=== PATIENT | female | born 1995 | race Caucasian/White ===

== ENCOUNTER 2022-07-20 09:41 | Emergency (ER) | payer MEDICAID ==
[~2022-07-20] VITALS: Ht 160 cm; Wt 47.2 kg
--- NOTE | 2022-07-20 10:40 | NUR ---
Patient walked into ER with a steady gait. A/Ox4. NAD noted.
--- NOTE | 2022-07-20 10:42 | NUR ---
Dr. Wells at bedside. MSE in progress.
[2022-07-20 10:53] LABS: *URINE HCG, QUAL NEGATIVE (NEGATIVE)
[2022-07-20 11:04] LABS: *BLOOD, URINE 3+ (NEGATIVE); *CLARITY,URINE CLOUDY (CLEAR); *COLOR,URINE AMBER (YELLOW); *KETONES,URINE NEGATIVE (NEGATIVE); *UROBILINOGEN,URINE 0.2 E.U./dl (NORMAL); LEUKOCYTE ESTERASE ,URINE 3+ (NEGATIVE); UGLUCOSE NEGATIVE (NEGATIVE)
[2022-07-20 11:27] LABS: *BILIRUBIN,URIN 1+ (NEGATIVE); NITRITE, URINE NEGATIVE (NEGATIVE)
[2022-07-20] MEDS ORDERED: NITR100C11 PO (11:33)
--- NOTE | 2022-07-20 11:38 | NUR ---
Patient discharged to home in stable condition. A/O x4. NAD noted. All belongings with patient. Written and verbal after care instructions given. Patient verbalizes understanding of instructions. Stressed follow up or return to ER for worsening s/s.
--- NOTE | 2022-07-20 11:40 | NUR ---
[place] in [facility] - 07/20/22 at 1141 by ANTOINE Patient walked into ER with a steady gait. A/O x4. NAD noted.
[2022-07-20 11:43] LABS: RBC,URINE 50-80 /HPF (0-3); WBC,URINE TNTC /HPF (0-3)
[2022-07-20 11:44] LABS: BACTERIA,URINE MODERATE /HPF (NONE SEEN); SQUAMOUS EPITHELIAL CELL,UR FEW /HPF (NONE SEEN)
[2022-07-20 11:46] VITALS: BP 109/68
== END 2022-07-20 11:38 | disposition home or self-care (01) ==
LOC: ER 09:41
DX: N39.0 Urinary tract infection, site not specified (principal); Z84.1 Family history of disorders of kidney and ureter
CPT/HCPCS: 84703; 87077; 87086; A4663

== ENCOUNTER 2022-08-15 19:17 | Emergency (ER) | payer MEDICAID, OTHER ==
[~2022-08-15] VITALS: Ht 160 cm; Wt 45.8 kg
[~2022-08-15 19:17] MED LIST: NITR100C11 PO
[2022-08-15] MEDS: ASPIRIN 81 MG TAB.CHEW PO ONE (20:40)
[2022-08-15] MEDS ORDERED: ASPIRIN EC 81 MG TABLET.DR PO ONE (20:42)
[2022-08-15 21:02] LABS: HEMATOCRIT 39.1 % (31.2-41.9); MEAN CORPUSCULAR HEMOGLOBIN 30.1 uug (24.7-32.8); MEAN CORPUSCULAR VOLUME 87.8 fL (75.5-95.3); PLATELET COUNT (AUTO) 249 K/uL (179-408)
[2022-08-15 21:05] LABS: CARBON DIOXIDE 30 mmol/L (21-32); CHLORIDE 101 mmol/L (98-107); CREATININE 0.7 mg/dL (0.6-1.3); GLUCOSE 90 mg/dL (74-106); POTASSIUM 3.9 mmol/L (3.5-5.1); UREA NITROGEN, BLOOD 14 mg/dL (7-18)
[2022-08-15 21:18] LABS: ALANINE AMINOTRANSFERASE 15 U/L (14-59); ALKALINE PHOSPHATASE 59 U/L (50-136); ASPARTATE AMINOTRANSFERASE 10 U/L (15-37); BILIRUBIN,DIRECT 0.1 mg/dL (0.0-0.2); BILIRUBIN,TOTAL 0.4 mg/dL (0.2-1.0); TOTAL PROTEIN, SERUM 7.9 g/dL (6.4-8.2)
[2022-08-16 00:14] VITALS: BP 108/71
== END 2022-08-16 00:33 | disposition home or self-care (01) ==
LOC: ER 19:19
DX: R07.9 Chest pain, unspecified (principal); J02.9 Acute pharyngitis, unspecified; Z84.1 Family history of disorders of kidney and ureter
CPT/HCPCS: 36415; 71045; 84484; 85025; 93005; A4663